=== PATIENT | female | born 1945 | race Caucasian/White ===

== ENCOUNTER 2017-06-05 12:48 | Day surgery (SDC) | payer MEDICARE, OTHER ==
[~2017-06-05] VITALS: Ht 152.4 cm; Wt 53.1 kg
[~2017-06-05 12:48] MED LIST: ACET650T46 PO; ADV250INH IH; AMLO5TAB2 PO; ASPI-973 PO; BET80 PO; CELE200C PO; DILT60CA PO; GABA-500 PO; LORA10CA PO; LOSA25TA2 PO; MULT1CAP33 PO; NIAC1000 PO; OMEG1CAP2 PO; ROSU40TA PO; TIOT18CA3 IH
[2017-06-05 13:16] VITALS: BP 124/70; PULSE 63; RESP 16; O2SAT 93
[2017-06-05] MEDS ORDERED: fentaNYL-PF 50 mCg/mL 2 mL Inj ONE ×2 (15:04)
[2017-06-05] MEDS ORDERED: fentaNYL-PF 50 mCg/mL 2 mL Inj IVPUSH PRN (15:05)
[2017-06-05] MEDS ORDERED: Sodium Chloride LOK Flush 10 mL Syringe IV PRN (15:05)
[2017-06-05] MEDS: 0.9% Sodium Chloride 1,000 ML IV PRN ×2 (15:23→15:53)
[2017-06-05 16:05] VITALS: BP 132/70; PULSE 67; RESP 16; O2SAT 93
[2017-06-05 16:17] VITALS: BP 129/69; PULSE 68; O2SAT 90
[2017-06-05 16:27] VITALS: BP 147/71; PULSE 65; O2SAT 89
[2017-06-05 16:37] VITALS: BP 147/74; PULSE 69; O2SAT 88
[2017-06-05] MEDS ORDERED: Albuterol 2.5 mg/3 mL Inhalation Solution NEB ONE (16:42)
[2017-06-05 16:46] VITALS: BP 123/69; PULSE 66; O2SAT 98
--- NOTE | 2017-06-05 18:28 | ENDO ---
[address] [address] ENDOSCOPY PROCEDURE PATIENT: MAYTE FALL : 1945 MR#: [id number] ADMIT: 06/05/2017 JOB ID: [id number] DATE OF SERVICE: 06/05/2017 PRIMARY PROVIDER: Rober Dockery M.D. PROCEDURE: 1. Esophagogastroduodenoscopy with biopsy. 2. Colonoscopy. INDICATIONS: A 72-year-old female with epigastric and even left upper quadrant abdominal pain, rather chronic nausea, some weight loss, reporting for endoscopic interrogation. MRCP was noted. She has a remote cholecystectomy. She has no choledocholithiasis. She does have some biliary dilatation and there is question of some stenosis in the distal duct. She does not have any symptoms of classic biliary colic, specifically no right upper quadrant pain. She does have concerning features throughout the liver. She does have abnormal liver tests. It is interesting that the MRCP commented that there were no definite liver lesions appreciated. EQUIPMENT: GIF H 180 J and a PCF H 180 AL. SEDATION: 1. 4 mg Versed. 2. 100 mcg fentanyl. COMPLICATIONS: None identified. BOWEL PREPARATION: Very adequate. PROCEDURE INFORMATION: After the risks and benefits were explained, written and verbal informed consent was obtained. The patient was brought into the endoscopy suite and placed into the left lateral decubitus position. Sedation was applied as described above. The scope was introduced into the mouth through the bite block and advanced under direct visualization to the second portion of the duodenum. The scope was slowly withdrawn to carefully examine the mucosa for any defects or lesions. Retroflexed views were accomplished in the stomach, the stomach was decompressed, and the scope removed from the patient who tolerated the procedure well. The patient was then turned around. A digital rectal examination accomplished. Grade 3 and grade 4, nonbleeding, nonthrombosed hemorrhoids were present. No mass lesions. The scope was introduced into the rectum and advanced under direct visualization to the cecum as identified by the appendiceal orifice and ileocecal valve. The terminal ileum was briefly accessed. The scope then slowly withdrawn to carefully examine the mucosa for any defects or lesions. Multiple direct views were made through the dentate line for exclusion of pathology. The colon was decompressed. The scope removed from the patient who tolerated the procedure well. FINDINGS: 1. Duodenum: In the second portion, I did not see the major papilla. There was, however, some diffuse scalloping of the mucosa and biopsy was acquired for exclusion of celiac. Otherwise, no significant duodenal mucosal abnormalities appreciated. 2. Stomach: The patient had multifocal superficial ulcerations through the antrum and prepyloric region. There was actually an ulcer right in the 6 o'clock location of the pyloric channel. Based on the multifocal nature of these ulcers, it suggested either NSAID-induced injury or Helicobacter or some combination of both. I did not see any focal singular neoplastic focus. Nevertheless, in light of the CT scan report, biopsies were acquired from the stomach at random for exclusion of Helicobacter pylori and then we took an extra separate biopsy of the pyloric channel for exclusion of any underlying neoplasia (visually it was thought that this would be less likely.) Retroflexed views of the LES were unremarkable. The patient did have a J-shaped stomach and it was difficult to actually see the scope coming down through the LES in the retroflexed position. 3. Esophagus: The squamocolumnar junction correlated with the top of the gastric folds. The GEJ was at 40 cm from the incisors. I did not see any acute erosive changes. No strictures. No mass lesions. Subtle sliding hiatal hernia was noted. Otherwise, no significant pathology appreciated throughout the remainder of the esophagus. 4. Terminal ileum: This appeared visually normal. 5. Colon: The patient had moderate diverticulosis and a twisty left colon. The diverticula extended all the way into the right colon. I did not see any significant polyps, mass lesions, or inflammatory features identified throughout. ENDOSCOPIC DIAGNOSES: 1. Duodenal scalloping. 2. Pyloric channel ulceration. 3. Multifocal antral ulceration. 4. Subtle sliding hiatal hernia. 5. Colonic diverticulosis. 6. Hemorrhoids. RECOMMENDATIONS: 1. Await histopathology. 2. If Helicobacter is found, it will need to be eradicated with standard triple therapy. 3. In the interim, the patient is encouraged to ideally hold her aspirin for the next several days. 4. She is initiated on proton pump inhibitor therapy. 5. It was at least reassuring that there were no obvious neoplastic foci within the liver MRI. Nevertheless, with abnormal liver chemistries and a tapering duct, ERCP would likely be prudent here. We will try to arrange for this to further evaluate the distal CBD and the major papilla early this coming week.
[2017-06-10] MEDS ORDERED: NITR0.4T SL (14:45)
[2017-06-10] MEDS ORDERED: LOSA50TA3 PO (14:45)
[2017-06-10] MEDS ORDERED: OMEG1CAP2 PO (14:45)
--- NOTE | 2017-06-13 09:33 | PATH ---
SURGICAL PATHOLOGY Attending Physician:Desmond Ortiz CASE STATUS: Signed Out PATIENT NAME: MAYTE FALL. PID: [id number] : 1945 DATE COLLECTED:06/05/2017 00:00 SPECIMEN: 1: Gastric, Biopsy 2: Duodenum, Biopsy 3: Gastric, Biopsy CLINICAL HISTORY: 1. GASTRIC BXS R/O H.PYLORI 2. DUODENAL BXS 3. PYLORIC ULCER BX FINAL DIAGNOSIS: 1.GASTRIC BIOPSY: REACTIVE GASTROPATHY, ANTRAL MUCOSA. Negative for Helicobacter organisms by immunohistochemical stains. Negative for intestinal metaplasia. Negative for dysplasia and malignancy. 2.DUODENAL BIOPSY: DUODENAL MUCOSA WITH NO DIAGNOSTIC ALTERATIONS. Negative for inflammation, sprue, dysplasia, and malignancy. 3.PYLORIC ULCER BIOPSY: ACTIVE INFLAMMATION AND REACTIVE CHANGES. Negative for dysplasia and malignancy. ICD10:K29.70 K29.80 GROSS DESCRIPTION: The specimens are received in formalin, labeled with the patient's name, and sublabeled as the following: (1) gastric bxs; (2) duodenal bxs; (3) pyloric ulcer bx. (1) The specimen consists of a fragment of hardy glistening semitranslucent tissue (0.3 x 0.2 x 0.1 cm). Section code: (1A) tissue. Specimen is entirely submitted. (2) The specimen consists of a fragment of hardy glistening semitranslucent tissue (0.4 x 0.3 x 0.1 cm). Section code: (2A) tissue. Specimen entirely submitted. (3) The specimen consists of a pink fragment of luis translucent glistening tissue (0.1 x 0.1-0.1 cm). Section code: (1A) tissue. Specimen entirely submitted. 06/06/17 JM MICRO DESCRIPTION: 1.Sections are of gastric antral mucosa with reactive gastropathy. No intestinal metaplasia is seen. Immunohistochemical stains are performed to further evaluate for Helicobacter organisms. The patient tissue is stained with monoclonal antibody to Helicobacter pylori (SP48). Positive and negative controls stain appropriately. Result: The patient tissue shows no staining. Interpretation: The gastric mucosa is negative for Helicobacter pylori by immunohistochemical stains. This test was developed and its performance characteristics determined by [employer]. It has not been cleared or approved by the U. S. Food and Drug Administration. The FDA has determined that such clearance or approval is not necessary. This test is used for clinical purposes. It should not be regarded as investigational or for research. ICD-9 CODES: CPT CODES: 1: 88824, 55045 2: 44499 3: 93548 Electronically Signed Out Radha Elliott MD [facility], [place] [address] Technical component performed at [facility], [facility] [address], [place], [address]
== END 2017-06-05 23:59 | disposition home or self-care (01) ==
LOC: END 12:48
PROVIDERS: ATTEND Internal Medicine Gastroenterology
DX: K57.30 Diverticulosis of large intestine without perforation or abscess without bleeding (principal); K64.9 Unspecified hemorrhoids; K44.9 Diaphragmatic hernia without obstruction or gangrene; K29.70 Gastritis, unspecified, without bleeding; R10.84 Generalized abdominal pain; K29.80 Duodenitis without bleeding; I10 Essential (primary) hypertension; I25.10 Atherosclerotic heart disease of native coronary artery without angina pectoris; E78.5 Hyperlipidemia, unspecified; D69.6 Thrombocytopenia, unspecified; J44.9 Chronic obstructive pulmonary disease, unspecified; K83.8 Other specified diseases of biliary tract; M19.90 Unspecified osteoarthritis, unspecified site; M06.9 Rheumatoid arthritis, unspecified; Z86.73 Personal history of transient ischemic attack (TIA), and cerebral infarction without residual deficits; Z95.1 Presence of aortocoronary bypass graft; Z95.5 Presence of coronary angioplasty implant and graft; Z87.891 Personal history of nicotine dependence; Z79.82 Long term (current) use of aspirin
CPT/HCPCS: 43239; 45378; 99153; G0500; J2250; J3010; J7030; J7613

== ENCOUNTER 2017-06-11 14:00 | Day surgery (SDC) | payer MEDICARE, OTHER ==
[~2017-06-11] VITALS: Ht 152.4 cm; Wt 52.6 kg
[2017-06-11] VITALS (8 sets, daily range): BP systolic 118–168; BP diastolic 59–77; PULSE 51–64; RESP 15–28; O2SAT 93–99
[~2017-06-11 14:00] MED LIST changes: -CELE200C PO; -DILT60CA PO; -GABA-500 PO; +LOSA50TA3 PO; +Lactated Ringer's 1,000 ML IV ONE; -NIAC1000 PO; +NITR0.4T SL; -ROSU40TA PO
[2017-06-11] MEDS ORDERED: Glucagon 1 mg/mL Inj ONE (14:01)
[2017-06-11] MEDS ORDERED: Succinylcholine Chloride 20 mg/mL 5 mL Inj ONE (14:01)
[2017-06-11] MEDS ORDERED: Ondansetron 2 mg/mL 2 mL Inj ONE (14:01)
[2017-06-11] MEDS ORDERED: Propofol 10,000 mCg/mL 20 mL Inj ONE (14:01)
--- NOTE | 2017-06-11 15:38 | PCM.HPANE ---
Patient Data Surgeon Admitting Provider: Attending Provider:Asif Sandhu MD Primary Care Physician:Fco Dockery MD Other Provider:RidgeocAnnettePetrolia Anesthesia Reason for Visit Common Bile Duct Dilation Ht/WT & BMI Height (Feet): 5 Height (Inches): 0 Weight (Kilograms): 52.62 Body Mass Index 22.00 Allergies Coded Allergies: TAPE (Verified Allergy, Intermediate, ONLY BANDAID BRAND, 06/05/17) acetaminophen (Verified Allergy, Unknown, 06/03/17) oxycodone (Verified Allergy, Unknown, 06/03/17) Iodine and Iodide Containing Produc (Verified Adverse Reaction, Unknown, ) Only to topical Past Anesthesia History Anesthesia History: Denies:: Abnormal Airway, Anesthesia Reactions, Difficult Intubation, Fam Anesthesia Reaction, Fam Malignant Hypertherm, Malignant Hyperthermia Diabetes History Hx Diabetes?: No MRSA MRSA: No Medications Blood Thinner: Aspirin Last Dose Blood Thinner: Jun 10, 2017 Hypertension Medication: Yes Home Meds Incl Beta Dontrell: Yes Date Beta Dontrell Taken: Jun 11, 2017 Time Beta Dontrell Taken: 0800 Active Scripts Sotalol (Betapace)80 Mg Dkzjti37 Mg PO Q12 #60 TAB Ref 6 Prov:Wisam Lazo PA-C 12/28/15 Reported Medications Nitroglycerin SL (Nitrostat)0.4 Mg Tab.subl0.4 Mg SL Q5MIN PRN For Chest Pain # 1 BOTTLE 06/10/17 [place]-3 Acid Ethyl Esters (Lovaza)1 Gm Capsule1 Gm PO DAILY #30 CAPSULE Ref 0 06/10/17 Losartan Potassium (Cozaar)50 Mg Zumkxs25 Mg PO 06/10/17 Amlodipine 5 Mg Tablet5 Mg PO DAILY Ref 0 06/03/17 Tiotropium [place] (Spiriva)18 Mcg Cap.w.dev1 Capsule IH DAILY #1 PKG Ref 0 12/26/15 Multivitamin (Multivitamins)1 Each Capsule1 Each PO DAILY 12/26/15 Loratadine (Claritin)10 Mg Ghavkxl06 Mg PO DAILY Ref 0 12/26/15 Aspirin 81 Mg Ydmnib79 Mg PO DAILY Ref 0 12/26/15 Fluticasone/Salmeterol (Advair 250-50 Diskus)60 Puff/Inh Disk1 Puff IH BID #1 DISK Ref 0 12/26/15 Acetaminophen Extended Release (Tylenol Arthritis Pain Extended-Release)650 Mg Tablet.er650 Mg PO DAILY PRN For Pain 12/26/15 Discontinued Reported Medications Losartan Potassium (Cozaar)25 Mg Odkqhx46 Mg PO DAILY 12/26/15 [place]-3 Acid Ethyl Esters (Lovaza)1 Gm Capsule1 Gm PO DAILY #30 CAPSULE Ref 0 06/03/17 Gabapentin 100 Mg Hprojnw562 Mg PO TID 30 Days Ref 0 06/03/17 Niacin ER (Niaspan)1,000 Mg Tablet1,000 Mg PO BID Ref 0 12/26/15 [place]-3 Acid Ethyl Esters (Lovaza)1 Gm Capsule2 Gm PO BID #30 CAPSULE Ref 0 12/26/15 Diltiazem ER 60 Mg Cap.er.12h60 Mg PO DAILY Ref 0 12/26/15 Rosuvastatin Calcium (Crestor)40 Mg Kgmbuo95 Mg PO DAILY 30 Days Ref 0 12/26/15 Celecoxib (Celebrex)200 Mg Ufyokhx630 Mg PO DAILY PRN For Pain #30 CAPSULE Ref 0 12/26/15 History History of ENT Problems?: Yes HEENT History: Positive for:: Cataracts Sinus Problem (sinus infections. ) Denies:: Abnormal Airway Difficult Intubation Dysphagia (ONLY BECAUSE OF DRY MOUTH ) Hearing Problem Denture Type: None Teeth Condition: Within Normal Limits Missing Teeth Other HEENT Pertinent History: back bilat lower and upper Hx of Heart Problems?: Yes Cardiovascular History: Positive for:: Cardiac Surgery (CABG- 3 vessel, ablation 18 years ago, cardiac cath with 3 stents) Heart Murmur Hypertension Irregular Heartbeat (SVT) Denies:: AICD Atrial Fibrillation Chest Pain Congestive Heart Failure Edema Pacemaker Thrombophlebitis Valvular Heart Disease Hx of Respiratory Problem?: Yes Respiratory History: Positive for:: COPD (WELL CONTROLLED) Cough (ALLERGY RELATED) Dyspnea Denies:: Asthma Chest Surgery Emphysema Hemoptysis Pneumonia Tuberculosis Hx Neurologic Problems?: Yes Neurological History: Positive for:: Headaches Denies:: Alzheimer's Disease CVA Dementia Dizziness Parkinson's Disease Seizures Hx of GI Problems?: Yes Hx of Problems?: Yes Genitourinary History: Positive for:: Kidney Stones Urinary Tract Infection Denies:: HX of Hemodialysis HX of Peritoneal Dialysis: No Female Hx: Denies:: Currently Endometriosis Pelvic Inflammatory Problems with Breasts? Hx Musculoskeletal Problems?: Yes Musculoskeletal History: Positive for:: Back Injury (Hx. of back surgery and spinal fusion of L4 and L5) Denies:: Joint Replacement Musculoskeletal Trauma Hx of Psycho/Social Problems?: No Psycho Social History: Denies:: Anxiety Hx Depression Hx Surgeries?: Yes (CABG, STENTS PLACED, TUBAL, HIPS, SHOULDER, MADISYN, SPINAL X4) Hx Any Other Health Problems?: Yes Other History: Positive for:: Hospitalization (CABG, Cardiac cath, Appendectomy, tonsillectomy, ovarain wedge resec, colec) Denies:: Cancer Thyroid Disease History Blood Transfusions: Denies:: Blood Transfuse Reaction Blood Transfusions Hx Diabetes: No Hx Alcohol Use: NoHx Substance Use: No Smoking Status: Former Smoker Have You Smoked inLast 12 mo: No Stop/Bang Treated for Sleep Apnea?: No Do You Have a CPAP Machine?: No S-Snoring: Do You Snore Loudly: No T-Tired: feel tired, fatigued: Yes O-Obsered: Observed not breath: No P-Blood Pressure: treated: Yes B- Body Mass Index > 35 kg/m2: No A- Age over 50: Yes N- Neck Large Circumference: No G- Gender Male: No MICAH Total Score: 3 MICAH Risk Assessment: Low Risk, <3 Yes Risk Assessment Category Category 1A: Patient has history of documented sleep apnea, and HAS NOT received any narcotic, sedative or anesthesia administration during this stay. Category 1B: Patient has history of documented sleep apnea, and HAS received any narcotic , sedative or anesthesia administration during this stay Category 2: Patient has SUSPECTED Obstructive Sleep Apnea, and HAS received any narcotic , sedative or anesthesia administration during this stay. Category 3: Patient has SUSPECTED Obstructive Sleep Apnea and HAS NOT received narcotic, sedative or anesthesia administration during this stay. Category 4: Outpatient in Procedural Areas with known sleep apnea or who screen positive for High Risk via the STOP/BANG questionnaire. Exam Exam Vital Signs Vital Signs Date Time Temp Pulse Resp B/P Pulse Ox O2 Delivery O2 Flow Rate FiO2 06/11/17 15:16 36.6 55 15 168/74 93 Room Air General Appearance: Oriented X3 HEENT/AIRWAY: MP 2 Lungs: Normal Air Movement Heart: Regular Rate/Rhythm Plan Impression Patient chart reviewed, patient interviewed and anesthestic plan with risks, benefits, and alternatives discussed, and informed consent obtained. ASA Physical Status: ASA3 Severe Disease Anesthetic Plan: GA Bene/Risks/Altern/Consents: Yes HP Complete Prior to Induction: Yes Albaro Painter MD Jun 11, 2017 15:38
[2017-06-11] MEDS ORDERED: Lactated Ringer's 1,000 ML IV SCH (15:39)
[2017-06-11] MEDS ORDERED: Lactated Ringer's 500 ML IV PRN (15:39)
[2017-06-11] MEDS ORDERED: fentaNYL-PF 50 mCg/mL 2 mL Inj IVPUSH PRN (15:40)
[2017-06-11] MEDS ORDERED: Phenylephrine 10,000 mCg/mL Inj IVPUSH PRN (15:40)
[2017-06-11] MEDS ORDERED: Ondansetron 2 mg/mL 2 mL Inj IVPUSH PRN (15:40)
[2017-06-11] MEDS ORDERED: MetoCLOpramide 5 mg/mL 2 mL Inj IVPUSH PRN (15:40)
[2017-06-11] MEDS ORDERED: Dexamethasone 4 mg/mL Inj IVPUSH PRN (15:40)
[2017-06-11] MEDS ORDERED: EPHEDrine Sulfate 50 mg/mL Inj IVPUSH PRN (15:40)
[2017-06-11] MEDS ORDERED: PANT40TA3 PO (15:59)
--- NOTE | 2017-06-11 19:12 | ENDO ---
[address] [address] ENDOSCOPY PROCEDURE PATIENT: MAYTE FALL : 1945 MR#: [id number] ADMIT: 06/11/2017 JOB ID: [id number] DATE: 06/11/2017 PRIMARY PROVIDER: Rober Dockery MD. PROCEDURE: Endoscopic retrograde cholangiopancreatography (with failed biliary access), plus esophagogastroduodenoscopy and dilatation under fluoroscopy. INDICATIONS: This is a 72-year-old female with abnormal liver chemistries, a remote history of cholecystectomy, and dilated biliary tree at MRCP with possible stenosis down at the level of the ampulla. Currently no abdominal pain. She recently had EGD and colonoscopy and it demonstrated multifocal peptic ulcer disease. The histology is still pending from EGD biopsies. EQUIPMENT: Standard duodenoscope. SEDATION: General anesthesia with endotracheal intubation as provided by Dr. Albaro Painter. She additionally received three separate 0.25 mg doses of IV glucagon during the case. She additionally received a 100 mg indomethacin suppository to prophylax against post ERCP pancreatitis. COMPLICATIONS: None identified. PROCEDURE INFORMATION: After the risks and benefits were explained, written and verbal informed consent was obtained, the patient was brought into the endoscopy suite and placed into the prone position following anesthesia and intubation. The side-viewing scope was advanced down to the level of the antrum. We again encountered multifocal peptic ulcer disease but could easily access the duodenal bulb with the endoscope. There was quite a bit of looping in the stomach and the channel was mildly narrowed with the history of peptic ulcer. We therefore removed this side- viewing scope, and placed a standard GIF-H180J into position and dilated the pyloric channel under fluoroscopy at 13.5, and then 15 mm, holding the 15 mm for 1 minute. (We had previously easily advanced the GIF scope into the second portion of the duodenum and laid the wire in place for a wire-guided dilatation.) After this maneuver, we replaced the GIF scope once again with the duodenoscope, and with some degree of challenge, were able to advance through into the duodenum. Most of the difficulty with advancing at this depth was almost certainly a function of the significant gastric looping that was required in order to generate enough force to make it into duodenum. Once there, we identified both the major and minor papilla. The major papilla appeared morphologically normal and was emanating a moderate amount of chow normal- colored bile. The papilla was immediately adjacent a moderate-sized duodenal diverticulum. It was very challenging to obtain an appropriate attack angle with the duodenoscope based on, I think, her gastric anatomy. This made biliary cannulation quite challenging and ultimately we failed. The entire case went on for approximately 1 hour and 45 minutes. We advanced the wire into the pancreas on numerous occasions. Contrast injection revealed a slightly dilated pancreatic duct in the head with perhaps maybe some mild stenosis right at the level of the ampulla. The duct that dilated, however, never received a wire during the case. Once again attempting to find the biliary tree with contrast and the 0.025 VisiGlide straight short Olympus guidewire proved unsuccessful (we were attempting all of this with the 20 mm Olympus sphincterotome). During the procedure, her motility was quite active and required three separate doses of the IV glucagon as described above. All throughout the case, she had impressive bile drainage through the major papilla, so clearly was not fully obstructed. We simply could not gain an appropriate angle to find the biliary tree. Because I saw great biliary drainage and possibly a small stricture in the PD, we elected to abort any further attempts at cannulation and terminated the procedure. The scope was brought back into the stomach. Excess fluid and air removed. The scope was then withdrawn from the patient who tolerated the procedure quite well. She was extubated and transferred to the PACU in stable condition. FINDINGS: As above. Again, multifocal peptic ulcer disease was noted. Mild stenosis of the pyloric channel which made entry into duodenum difficult, demanding dilatation to 15 mm as described above. The patient had what appeared to be adequate biliary drainage at the level of the major papilla. We, however, were not able to cannulate CBD as described above. There was some mild dilatation of the PD with what appeared to be a very short possible stricture in the head of the pancreas. Over the course of the case, with application of suction, the contrast in the PD slowly seemed to dissipate, indicative of drainage albeit somewhat sluggish. ENDOSCOPIC DIAGNOSES: 1. Failed biliary access. 2. Mildly dilated pancreatic duct with possible stricture near the ampulla. 3. Duodenal diverticulum. 4. Multifocal gastric peptic ulcer disease. 5. Mild pyloric stenosis as a consequence of peptic ulcer disease. RECOMMENDATIONS: 1. The patient will be kept n.p.o. for 5 hours and then advanced to clear liquids this evening, should she have no problems with post ERCP pancreatitis. As long as she is doing well following her recovery from Anesthesia, I do not see why she cannot be discharged home this evening. 2. I have requested a repeat set of LFTs prior to discharge to compare with her numbers from May 21 where her alk phos was 151, AST 230, ALT 162, and bilirubin was 0.4. 3. I have requested urgent EUS, plus or minus a repeat attempt at ERCP down at [facility], ideally within the next week or so.
[2017-06-11 19:36] LABS: Bilirubin, Direct 0.2 mg/dL (0.0-0.3)
--- NOTE | 2017-06-12 07:44 | PCM.ANEP1 ---
Post Anesthesia PACU Phase 1 Assessment Anesthetic Administered: GA Level of Alertness: Awake, talking Pain: No Nausea or Vomiting: No CV Function & Hydration Stable: Yes Airway Device: Oralpharangeal Airway Lungs: Normal Air Movement PACU Phase 2 Assessment Patient Instructions Provided: N/A Albaro Painter MD Jun 12, 2017 07:44
== END 2017-06-11 23:59 | disposition home or self-care (01) ==
LOC: END 14:00
PROVIDERS: ATTEND Internal Medicine Gastroenterology
DX: K83.8 Other specified diseases of biliary tract (principal); K86.89 Other specified diseases of pancreas; K57.10 Diverticulosis of small intestine without perforation or abscess without bleeding; K25.9 Gastric ulcer, unspecified as acute or chronic, without hemorrhage or perforation; K31.1 Adult hypertrophic pyloric stenosis; J44.9 Chronic obstructive pulmonary disease, unspecified; I10 Essential (primary) hypertension; M06.9 Rheumatoid arthritis, unspecified; I47.1 Supraventricular tachycardia; I25.10 Atherosclerotic heart disease of native coronary artery without angina pectoris; Z95.1 Presence of aortocoronary bypass graft; Z95.5 Presence of coronary angioplasty implant and graft
CPT/HCPCS: 36415; 43260; 74330; 80076; J0330; J1610; J2405; J7120; Q9967

== ENCOUNTER 2017-06-21 12:45 | Day surgery (SDC) | payer MEDICARE, OTHER ==
[2017-06-21] VITALS (18 sets, daily range): BP systolic 110–176; BP diastolic 49–79; PULSE 57–68; RESP 12–22; O2SAT 87–100
[~2017-06-21] VITALS: Ht 152.4 cm; Wt 52.0 kg
[~2017-06-21 12:45] MED LIST changes: +ACET-171 PO; -ACET650T46 PO; -BET80 PO; +CELE200C PO; +FURO10SO2 PO; +GABA-500 PO; -LOSA25TA2 PO; +Lactated Ringer's 1,000 ML IV SCH; +MULT-1018 PO; -MULT1CAP33 PO; +MetoCLOpramide 5 mg/mL 2 mL Inj IVPUSH PRN; +NIAC1000 PO; +Ondansetron 2 mg/mL 2 mL Inj IVPUSH PRN; +ROSU40TA PO; +SOTA80TA PO
[2017-06-21] MEDS ORDERED: PANT40TA3 PO (14:43)
--- NOTE | 2017-06-21 15:02 | PCM.HPANE ---
Patient Data Surgeon Admitting Provider: Attending Provider:Bharath Montoya MD Primary Care Physician:Fco Dockery MD Other Provider:Senthil Galloway Anesthesia Reason for Visit Abnormal Findings On Imaging Ht/WT & BMI Height (Feet): 5 Height (Inches): 0 Weight (Kilograms): 52 Body Mass Index 22.00 Allergies Coded Allergies: TAPE (Verified Allergy, Intermediate, ONLY BANDA[employer] BRAND, 06/05/17) acetaminophen (Verified Allergy, Unknown, 06/03/17) oxycodone (Verified Allergy, Unknown, 06/03/17) Iodine and Iodide Containing Produc (Verified Adverse Reaction, Unknown, ) Only to topical Past Anesthesia History Anesthesia History: Positive for:: Fam Anesthesia Reaction (MY BROTHER HAD A MASSIVE AL FROM CONTRAST DURING PROCEDURE), Denies:: Abnormal Airway, Anesthesia Reactions, Difficult Intubation, Fam Malignant Hypertherm, Malignant Hyperthermia Diabetes History Hx Diabetes?: No MRSA MRSA: No Medications Blood Thinner: Aspirin Last Dose Blood Thinner: Jun 11, 2017 Home Meds Incl Beta Dontrell: Yes Date Beta Dontrell Taken: Jun 21, 2017 Time Beta Dontrell Taken: 0730 [address] Pant[address] 40 Mg Tablet.dr40 Mg PO BID Ref 0 06/21/17 Tiotropium [place] (Spiriva)18 Mcg Cap.w.dev18 Mcg IH DAILY #1 PKG Ref 0 06/20/17 Sotalol HCl (Sotalol)80 Mg Gurxpm55 Mg PO BID 30 Days Ref 0 06/20/17 Nitroglycerin SL (Nitrostat)0.4 Mg Tab.subl0.4 Mg SL Q5MIN PRN For Chest Pain # 1 BOTTLE 06/20/17 Niacin ER (Niaspan)1,000 Mg Tablet1,000 Mg PO BID Ref 0 06/20/17 Multivitamin (Multi Vitamin Daily)1 Each Tablet1 Each PO DAILY 30 Days Ref 0 06/20/17 [place]-3 Acid Ethyl Esters (Lovaza)1 Gm Capsule2 Gm PO BID #30 CAPSULE Ref 0 06/20/17 Furosemide 10 Mg/1 Ml Xabsscbz29 Mg PO DAILY Ref 0 06/20/17 Rosuvastatin Calcium (Crestor)40 Mg Qotuis87 Mg PO DAILY 30 Days Ref 0 06/20/17 Losartan Potassium (Cozaar)50 Mg Tkreis67 Mg PO DAILY 06/20/17 Loratadine (Claritin)10 Mg Skkqrfw62 Mg PO DAILY Ref 0 06/20/17 Celecoxib (Celebrex)200 Mg Kgpimmo141 Mg PO DAILY #30 CAPSULE Ref 0 06/20/17 Aspirin 81 Mg Latycx90 Mg PO DAILY Ref 0 06/20/17 Fluticasone/Salmeterol (Advair 250-50 Diskus)60 Puff/Inh Disk1 Puff IH BID #1 DISK Ref 0 06/20/17 Acetaminophen 500 Mg Dupadr324 Mg PO DAILY PRN For Fever 06/20/17 Discontinued Reported Medications Gabapentin 100 Mg Amwyxxf677 Mg PO TID 30 Days Ref 0 06/20/17 Amlodipine 5 Mg Tablet5 Mg PO DAILY Ref 0 06/20/[address] 40 Mg Tablet.dr40 Mg PO BID Ref 0 06/11/17 Nitroglycerin SL (Nitrostat)0.4 Mg Tab.subl0.4 Mg SL Q5MIN PRN For Chest Pain # 1 BOTTLE 06/10/17 [place]-3 Acid Ethyl Esters (Lovaza)1 Gm Capsule1 Gm PO DAILY #30 CAPSULE Ref 0 06/10/17 Losartan Potassium (Cozaar)50 Mg Apcvql59 Mg PO 06/10/17 Amlodipine 5 Mg Tablet5 Mg PO DAILY Ref 0 06/03/17 Tiotropium [place] (Spiriva)18 Mcg Cap.w.dev1 Capsule IH DAILY #1 PKG Ref 0 12/26/15 Multivitamin (Multivitamins)1 Each Capsule1 Each PO DAILY 12/26/15 Loratadine (Claritin)10 Mg Qtnmlnj80 Mg PO DAILY Ref 0 12/26/15 Aspirin 81 Mg Idqmso17 Mg PO DAILY Ref 0 12/26/15 Fluticasone/Salmeterol (Advair 250-50 Diskus)60 Puff/Inh Disk1 Puff IH BID #1 DISK Ref 0 12/26/15 Acetaminophen Extended Release (Tylenol Arthritis Pain Extended-Release)650 Mg Tablet.er650 Mg PO DAILY PRN For Pain 12/26/15 Discontinued Scripts Sotalol (Betapace)80 Mg Bfbxuc58 Mg PO Q12 #60 TAB Ref 6 Prov:Wisam Lazo PA-C 12/28/15 Last Time Dose Received Took sotalol History History of ENT Problems?: Yes HEENT History: Positive for:: Cataracts Sinus Problem (sinus infections. ) Denies:: Abnormal Airway Difficult Intubation Dysphagia (ONLY BECAUSE OF DRY MOUTH ) Hearing Problem Denture Type: None Teeth Condition: Within Normal Limits Hx of Heart Problems?: Yes Cardiovascular History: Positive for:: Atrial Fibrillation (ABLATION 12/2015) Cardiac Surgery (CABG- 3 vessel, ablation 18 years ago, cardiac cath with 3 stents) Heart Murmur Hypertension Irregular Heartbeat (SVT) Denies:: AICD Chest Pain Congestive Heart Failure Edema Pacemaker Thrombophlebitis Valvular Heart Disease Other History/Comments On sotalol for SVT No recent CP. Cardiac status at baseline Hx of Respiratory Problem?: Yes Respiratory History: Positive for:: COPD (WELL CONTROLLED) Cough (ALLERGY RELATED) Dyspnea Denies:: Asthma Chest Surgery Emphysema Hemoptysis Pneumonia Tuberculosis Other History/Comment Breathing at baseline Hx Neurologic Problems?: Yes Neurological History: Positive for:: Headaches Denies:: Alzheimer's Disease CVA Dementia Dizziness Parkinson's Disease Seizures Hx of GI Problems?: Yes Hx of Problems?: Yes Genitourinary History: Positive for:: Kidney Stones Urinary Tract Infection Denies:: HX of Hemodialysis HX of Peritoneal Dialysis: No Female Hx: Denies:: Currently Endometriosis Pelvic Inflammatory Problems with Breasts? Hx Musculoskeletal Problems?: Yes Musculoskeletal History: Positive for:: Back Injury (Hx. of back surgery and spinal fusion of L4 and L5) Joint Replacement (BOTH HIPS) Denies:: Fibromyalgia Musculoskeletal Trauma Hx of Psycho/Social Problems?: No Psycho Social History: Denies:: Anxiety Hx Depression Hx Surgeries?: Yes (CABG, STENTS PLACED, TUBAL, HIPS, SHOULDER, MADISYN, SPINAL X4) Hx Any Other Health Problems?: Yes Other History: Positive for:: Hospitalization (CABG, Cardiac cath, Appendectomy, tonsillectomy, ovarain wedge resec, colec) Denies:: Cancer Thyroid Disease History Blood Transfusions: Denies:: Blood Transfuse Reaction Blood Transfusions Hx Diabetes: No Hx Alcohol Use: NoHx Substance Use: No Smoking Status: Former Smoker Have You Smoked inLast 12 mo: No Stop/Bang Treated for Sleep Apnea?: No Do You Have a CPAP Machine?: No S-Snoring: Do You Snore Loudly: No T-Tired: feel tired, fatigued: No O-Obsered: Observed not breath: No P-Blood Pressure: treated: Yes B- Body Mass Index > 35 kg/m2: No A- Age over 50: Yes N- Neck Large Circumference: No G- Gender Male: No MICAH Total Score: 2 Risk Assessment Category Category 1A: Patient has history of documented sleep apnea, and HAS NOT received any narcotic, sedative or anesthesia administration during this stay. Category 1B: Patient has history of documented sleep apnea, and HAS received any narcotic , sedative or anesthesia administration during this stay Category 2: Patient has SUSPECTED Obstructive Sleep Apnea, and HAS received any narcotic , sedative or anesthesia administration during this stay. Category 3: Patient has SUSPECTED Obstructive Sleep Apnea and HAS NOT received narcotic, sedative or anesthesia administration during this stay. Category 4: Outpatient in Procedural Areas with known sleep apnea or who screen positive for High Risk via the STOP/BANG questionnaire. Exam Exam Vital Signs Vital Signs Date Time Temp Pulse Resp B/P Pulse Ox O2 Delivery O2 Flow Rate FiO2 06/21/17 14:39 36.4 59 16 176/75 92 Room Air General Appearance: Alert, Oriented X3 HEENT/AIRWAY: MP 2, Neck Movement (FROM) Lungs: Clear to Auscultation, Clear to Percussion Heart: Exam Unremarkable, Regular Rate/Rhythm Plan Impression Patient chart reviewed, patient interviewed and anesthestic plan with risks, benefits, and alternatives discussed, and informed consent obtained. ASA Physical Status: ASA3 Severe Disease (COPD) Anesthetic Plan: GA Bene/Risks/Altern/Consents: Yes HP Complete Prior to Induction: Yes Wisam Madrigal MD Jun 21, 2017 15:02
--- NOTE | 2017-06-21 16:54 | NUR ---
PACU Recovery Pt arrived from [facility]. Report taken from Dr Chavez. Pt is drowsy, responds easily to voice. VSS. No c/o pain or nausea. Addendum: 06/21/17 at 1744 by AMARILIS MCDONALD RN Vitals continue to be stable. No c/o pain. States she is hungry. Report given to Maria Teresa Burns RN. Pt transferred back to [facility] to md home.
--- NOTE | 2017-06-21 17:07 | PCM.ANEP1 ---
Post Anesthesia PACU Phase 1 Assessment Vital Signs Vital Signs Date Time Temp Pulse Resp B/P Pulse Ox O2 Delivery O2 Flow Rate FiO2 06/21/17 16:50 68 14 148/49 98 Simple Mask 6 06/21/17 16:47 36.4 65 16 153/64 98 Simple Mask 6 06/21/17 14:39 36.4 59 16 176/75 92 Room Air Anesthetic Administered: GA, MAC (MAC converted to GA) Level of Alertness: Awake, talking MARTINEZ's with Equal Strength: Yes Pain: No Nausea or Vomiting: No CV Function & Hydration Stable: Yes Airway Device: Oxygen Delivery: Simple Mask Lungs: Clear to Auscultation, Clear to Percussion PACU Phase 2 Assessment Complications: No Follow up Care: No Patient Instructions Provided: N/A Comments See anesth record for PACU VS. PACU VSS Wisam Madrigal MD Jun 21, 2017 17:07
--- NOTE | 2017-06-21 17:29 | ENDO ---
[address] [address] ENDOSCOPY PROCEDURE PATIENT: MAYTE FALL : 1945 MR#: [id number] ADMIT: 06/21/2017 JOB ID: [id number] PROCEDURE: Endoscopic ultrasound (EUS) exam. INDICATION: Dilated common bile duct with abnormal liver function tests. The patient had a failed ERCP for evaluation of the above. INSTRUMENT USED: [employer]Cast-UCT 180 linear echo endoscope. ANESTHESIA: Please see Dr. Wisam Madrigal's anesthesia report for details regarding general anesthesia. The patient was initially under MAC sedation; however, as she became hypoxic, this was converted to general anesthesia. PROCEDURE DETAILS: After informed consent was obtained, the patient was brought into the GI suite, where she was placed on oxygen via nasal cannula and monitored with continuous pulse oximeter, telemetry, and blood pressure monitoring. A time-out was performed, then she was placed in the left lateral decubitus position and medications were administered for sedation. The linear echo endoscope was then introduced through the bite block and advanced to the antrum. At this point the patient became hypoxic and the scope was then withdrawn. After oxygen saturations returned to normal she was placed under general anesthesia. The linear echo endoscope was then introduced back through the bite block and advanced to the pylorus, where we encountered a mild amount of resistance. However, with the application of abdominal pressure, we were able to advance the scope into the second portion of the duodenum. Endoscopic views did reveal a superficial ulceration in the antrum that measured approximately 5 mm. There was erythema as well as edema in the antrum noticed as well, suggestive of gastritis. Echo endoscopic imaging demonstrated the following: In the head the pancreatic duct did appear slightly dilated at 4.2 mm. Also noted on several images was a hyperechoic lesion that measured approximately 2-3 mm with shadowing, suggestive of a pancreatic duct stone. The pancreatic duct then tapered in the body, and then in the tail of pancreas appeared to be slightly dilated measuring approximately 4.2 mm. No obvious mass lesions were seen at the ampulla or in the pancreas. The common bile duct was dilated to approximately 8 mm at the ampulla. More proximally, the common bile duct appeared to be dilated to approximately 1 cm. Normal flow was seen in the splenic artery and vein. The superior mesenteric artery appeared unremarkable, as did the celiac axis. Flow was seen in the portal vein. Multiple hyperechoic, irregularly shaped lesions were noted in the left lobe of the liver. These lesions measured anywhere from 2 mm to 4 mm. Appearance was not entirely consistent with liver metastasis. The left kidney was identified and appeared to contain multiple hypoechoic, well-circumscribed lesions measuring up to 10 mm. IMPRESSION: 1. Dilated common bile duct and pancreatic duct, without any obvious ampullary mass or pancreatic mass appreciated. 2. Multiple hyperechoic liver lesions. 3. Possible pancreatic duct stone. RECOMMENDATIONS: 1. MRI with and without contrast of the abdomen. 2. Follow up in GI Clinic. COMPLICATIONS: None. ESTIMATED BLOOD LOSS: Less than 5 mL.
[2017-06-21] MEDS ORDERED: Albuterol-Ipratropium 3 mL Inhalation Solution NEB PRN ×2 (18:15→18:25)
== END 2017-06-21 23:59 | disposition home or self-care (01) ==
LOC: END 12:45
PROVIDERS: ATTEND Internal Medicine Gastroenterology
DX: K83.8 Other specified diseases of biliary tract (principal); K76.89 Other specified diseases of liver; K25.9 Gastric ulcer, unspecified as acute or chronic, without hemorrhage or perforation; N28.89 Other specified disorders of kidney and ureter; R94.5 Abnormal results of liver function studies; I25.10 Atherosclerotic heart disease of native coronary artery without angina pectoris; E78.2 Mixed hyperlipidemia; D69.6 Thrombocytopenia, unspecified; I10 Essential (primary) hypertension; M06.9 Rheumatoid arthritis, unspecified; J44.9 Chronic obstructive pulmonary disease, unspecified; I25.2 Old myocardial infarction; I47.1 Supraventricular tachycardia; Z95.5 Presence of coronary angioplasty implant and graft; Z95.1 Presence of aortocoronary bypass graft; Z87.891 Personal history of nicotine dependence; Z79.82 Long term (current) use of aspirin; Z79.51 Long term (current) use of inhaled steroids
CPT/HCPCS: 43237; J7120